=== PATIENT | male | born 1975 | race Caucasian/White ===

== ENCOUNTER 2018-09-13 12:15 | Emergency (ER) | payer OTHER ==
[~2018-09-13] VITALS: Ht 175.3 cm; Wt 90.7 kg
[2018-09-13] MEDS ORDERED: HYDROCODONE-AP1 EAC6 PO (14:07)
[2018-09-13] MEDS ORDERED: KEFLEX500 M1 PO (14:07)
[2018-09-13 14:46] VITALS: BP 125/77
== END 2018-09-13 14:26 | disposition home or self-care (01) ==
LOC: M.ERS 12:15
DX: S61.511A Laceration without foreign body of right wrist, initial encounter (principal); Z91.048 Other nonmedicinal substance allergy status; W26.8XXA Contact with other sharp object(s), not elsewhere classified, initial encounter; Y93.89 Activity, other specified; Y92.89 Other specified places as the place of occurrence of the external cause; Y99.8 Other external cause status